=== PATIENT | male | born 1945 | race Caucasian/White ===

== ENCOUNTER 2018-03-22 11:12 | Outpatient (CLI) | payer MEDICARE, BC | END 2018-03-22 23:59 | disposition home or self-care (01) | LOC: WOU 11:12 | PROVIDERS: ATTEND Podiatrist Foot & Ankle Surgery | DX: E11.622 Type 2 diabetes mellitus with other skin ulcer (principal); L97.322 Non-pressure chronic ulcer of left ankle with fat layer exposed; L03.116 Cellulitis of left lower limb; B96.20 Unspecified Escherichia coli [E. coli] as the cause of diseases classified elsewhere; B95.62 Methicillin resistant Staphylococcus aureus infection as the cause of diseases classified elsewhere; B95.1 Streptococcus, group B, as the cause of diseases classified elsewhere; R60.0 Localized edema; I87.2 Venous insufficiency (chronic) (peripheral); Z79.4 Long term (current) use of insulin; Z85.89 Personal history of malignant neoplasm of other organs and systems | CPT/HCPCS: 87070; 87077; 87186; A6402; G0463; Z7610; 87075-TC ==

== ENCOUNTER 2018-03-23 12:37 | Outpatient (CLI) | payer MEDICARE, BC ==
[2018-03-23 17:17] LABS: BASOPHILS % (AUTO) 0.2 % (0.0-2.0); EOSINOPHILS % (AUTO) 1.2 % (0.0-6.0); HEMATOCRIT 46 % (39-51); HEMOGLOBIN 14.6 g/dL (13.5-17.5); LYMPHOCYTES # (AUTO) 1.7 /CMM (0.8-4.8); LYMPHOCYTES % (AUTO) 20.2 % (20.0-44.0); MEAN CORPUSCULAR HGB CONC 32 g/dl (31.0-36.0); MEAN CORPUSCULAR VOLUME 96 fL (80-96); MONOCYTES # (AUTO) 0.4 /CMM (0.1-1.30); MONOCYTES % (AUTO) 5.1 % (2.0-12.0); NEUTROPHILS # (AUTO) 6.2 /CMM (1.8-8.9); NEUTROPHILS % (AUTO) 73.3 % (43.0-81.0); PLATELET COUNT (AUTO) 265 /CMM (150-450); RDW COEFFICIENT OF VARIATION 14.2 (11.5-15.0); WHITE BLOOD COUNT (AUTO) 8.5 K/uL (4.3-11.0)
[2018-03-23 17:30] LABS: ALANINE AMINOTRANSFERASE 22 U/L (12-78); ALBUMIN 3.7 g/dL (3.4-5.0); ALKALINE PHOSPHATASE 57 U/L (46-116); ASPARTATE AMINOTRANSFERASE 19 U/L (15-37); BILIRUBIN,TOTAL 0.6 mg/dL (0.2-1.0); CALCIUM, SERUM 8.6 mg/dL (8.5-10.1); CARBON DIOXIDE 27 mmol/L (21-32); CHLORIDE 106 mmol/L (98-107); CREATININE 1.1 mg/dL (0.6-1.3); GLUCOSE 117 mg/dL (74-106); POTASSIUM 4.6 mmol/L (3.5-5.1); SODIUM SERUM 140 mmol/L (136-145); UREA NITROGEN, BLOOD 24 mg/dL (7-18)
== END 2018-03-23 23:59 | disposition home or self-care (01) ==
LOC: MRI 12:37
PROVIDERS: ATTEND Podiatrist Foot & Ankle Surgery
DX: S96.812A Strain of other specified muscles and tendons at ankle and foot level, left foot, initial encounter (principal); S93.692A Other sprain of left foot, initial encounter; M72.2 Plantar fascial fibromatosis; M62.572 Muscle wasting and atrophy, not elsewhere classified, left ankle and foot; G62.9 Polyneuropathy, unspecified; X58.XXXA Exposure to other specified factors, initial encounter; Y93.89 Activity, other specified; Y92.89 Other specified places as the place of occurrence of the external cause; Y99.8 Other external cause status
CPT/HCPCS: 36415; 73718-TC; 80053-TC; 85025-TC; 85652-TC

== ENCOUNTER 2018-03-29 11:10 | Outpatient (CLI) | payer MEDICARE, BC | END 2018-03-29 23:59 | disposition home or self-care (01) | LOC: WOU 11:10 | PROVIDERS: ATTEND Podiatrist Foot & Ankle Surgery | DX: E11.622 Type 2 diabetes mellitus with other skin ulcer (principal); L97.322 Non-pressure chronic ulcer of left ankle with fat layer exposed; R60.9 Edema, unspecified; I87.2 Venous insufficiency (chronic) (peripheral); Z79.899 Other long term (current) drug therapy | CPT/HCPCS: 11042; A6402; Z7610 ==

== ENCOUNTER 2018-05-24 12:15 | Outpatient (CLI) | payer MEDICARE, BC | END 2018-05-24 23:59 | disposition home or self-care (01) | LOC: WOU 12:15 | PROVIDERS: ATTEND Podiatrist Foot & Ankle Surgery | DX: E11.622 Type 2 diabetes mellitus with other skin ulcer (principal); L97.322 Non-pressure chronic ulcer of left ankle with fat layer exposed; L03.116 Cellulitis of left lower limb; B96.89 Other specified bacterial agents as the cause of diseases classified elsewhere; I87.2 Venous insufficiency (chronic) (peripheral); R60.9 Edema, unspecified; Z79.899 Other long term (current) drug therapy | CPT/HCPCS: 11042; 87070; 87075; 87077; 87186; A6402; Z7610 ==

== ENCOUNTER 2018-06-22 11:39 | Outpatient (CLI) | payer MEDICARE, BC ==
[2018-06-22 12:06] LABS: BASOPHILS % (AUTO) 0.6 % (0.0-2.0); EOSINOPHILS % (AUTO) 3.1 % (0.0-6.0); HEMATOCRIT 41 % (39-51); HEMOGLOBIN 14.1 g/dL (13.5-17.5); LYMPHOCYTES # (AUTO) 2.6 /CMM (0.8-4.8); LYMPHOCYTES % (AUTO) 39.9 % (20.0-44.0); MEAN CORPUSCULAR HGB CONC 34 g/dl (31.0-36.0); MEAN CORPUSCULAR VOLUME 94 fL (80-96); MONOCYTES # (AUTO) 0.7 /CMM (0.1-1.30); MONOCYTES % (AUTO) 10.9 % (2.0-12.0); NEUTROPHILS # (AUTO) 2.9 /CMM (1.8-8.9); NEUTROPHILS % (AUTO) 45.5 % (43.0-81.0); PLATELET COUNT (AUTO) 278 /CMM (150-450); RED BLOOD CELL COUNT(AUTO) 4.38 MIL/uL (4.5-6.0); WHITE BLOOD COUNT (AUTO) 6.5 K/uL (4.3-11.0)
[2018-06-22 12:14] LABS: CALCIUM, SERUM 8.3 mg/dL (8.5-10.1); CARBON DIOXIDE 23 mmol/L (21-32); CHLORIDE 105 mmol/L (98-107); CREATININE 1.2 mg/dL (0.6-1.3); GLUCOSE 116 mg/dL (74-106); POTASSIUM 4.2 mmol/L (3.5-5.1); SODIUM SERUM 138 mmol/L (136-145); UREA NITROGEN, BLOOD 23 mg/dL (7-18)
== END 2018-06-22 23:59 | disposition home or self-care (01) ==
LOC: LAB 11:39
PROVIDERS: ATTEND Podiatrist Foot & Ankle Surgery
DX: Z01.818 Encounter for other preprocedural examination (principal); E11.621 Type 2 diabetes mellitus with foot ulcer
CPT/HCPCS: 36415; 71045-TC; 80048-TC; 85025-TC; 85730-TC

== ENCOUNTER 2018-06-24 12:30 | Outpatient (CLI) | payer MEDICARE, BC | END 2018-06-24 23:59 | disposition home or self-care (01) | LOC: WOU 12:30 | PROVIDERS: ATTEND Podiatrist Foot & Ankle Surgery | DX: E11.622 Type 2 diabetes mellitus with other skin ulcer (principal); L97.322 Non-pressure chronic ulcer of left ankle with fat layer exposed; L90.5 Scar conditions and fibrosis of skin; Z79.899 Other long term (current) drug therapy | CPT/HCPCS: 11042; A6402; Z7610 ==

== ENCOUNTER → 2018-06-28 | Day surgery (SDC) | payer MEDICARE, BC ==
[~2018-06-28] MED LIST: ANESTHESIA TRAY IN PYXIS 1 EA TRAY MC ONE; BUPIVACAINE MPF 0.5% W/EPI INJ 30 ML VIAL ONE; FENTANYL PF 100MCG/2ML AMPUL ONE; HYDROCODONE/APAP 5/325MG 1 EACH TABLET ONE; LIDOCAINE HCL/PF 1% 30 ML SDV ONE; MIDAZOLAM HCL 2 MG/2ML VIAL ONE; MINERAL OIL 10 ML VIAL MC ONE
== END | disposition home or self-care (01) ==
LOC: DS 05:56
PROVIDERS: ATTEND Podiatrist Foot & Ankle Surgery
DX: E11.621 Type 2 diabetes mellitus with foot ulcer (principal); L97.528 Non-pressure chronic ulcer of other part of left foot with other specified severity; I10 Essential (primary) hypertension; G47.33 Obstructive sleep apnea (adult) (pediatric); Z88.8 Allergy status to other drugs, medicaments and biological substances; Z79.899 Other long term (current) drug therapy
CPT/HCPCS: 82962-TC; 87070-TC; 87186-TC; 88305-TC; 88312-TC; A6209; A6402; J0690; J2250; J2704; J3010; J3490

== ENCOUNTER 2018-07-05 11:00 | Outpatient (CLI) | payer MEDICARE, BC | END 2018-07-05 23:59 | disposition home or self-care (01) | LOC: WOU 11:00 | PROVIDERS: ATTEND Podiatrist Foot & Ankle Surgery | DX: Z48.817 Encounter for surgical aftercare following surgery on the skin and subcutaneous tissue (principal); T81.89XD Other complications of procedures, not elsewhere classified, subsequent encounter; Z94.5 Skin transplant status | CPT/HCPCS: A6402; G0463 ==

== ENCOUNTER 2018-07-12 11:00 | Outpatient (CLI) | payer MEDICARE, BC | END 2018-07-12 23:59 | disposition home or self-care (01) | LOC: WOU 11:00 | PROVIDERS: ATTEND Podiatrist Foot & Ankle Surgery | DX: Z48.817 Encounter for surgical aftercare following surgery on the skin and subcutaneous tissue (principal); T81.89XD Other complications of procedures, not elsewhere classified, subsequent encounter; I87.2 Venous insufficiency (chronic) (peripheral); Z94.5 Skin transplant status; M79.672 Pain in left foot; M79.652 Pain in left thigh; R60.9 Edema, unspecified | CPT/HCPCS: 29445; A6402 ×2; Z7610 ==

== ENCOUNTER 2018-07-22 10:45 | Outpatient (CLI) | payer MEDICARE, BC | END 2018-07-22 23:59 | disposition home or self-care (01) | LOC: WOU 10:45 | PROVIDERS: ATTEND Podiatrist Foot & Ankle Surgery | DX: Z48.817 Encounter for surgical aftercare following surgery on the skin and subcutaneous tissue (principal); T86.828 Other complications of skin graft (allograft) (autograft); T81.89XA Other complications of procedures, not elsewhere classified, initial encounter; E11.621 Type 2 diabetes mellitus with foot ulcer; L97.522 Non-pressure chronic ulcer of other part of left foot with fat layer exposed; E11.40 Type 2 diabetes mellitus with diabetic neuropathy, unspecified | CPT/HCPCS: 29581; A6207; A6402 ==

== ENCOUNTER 2018-07-27 09:00 | Outpatient (CLI) | payer MEDICARE, BC | END 2018-07-27 23:59 | disposition home or self-care (01) | LOC: WOU 09:00 | PROVIDERS: ATTEND Specialist | DX: Z01.818 Encounter for other preprocedural examination (principal); T86.821 Skin graft (allograft) (autograft) failure; T81.89XA Other complications of procedures, not elsewhere classified, initial encounter; E11.621 Type 2 diabetes mellitus with foot ulcer; L97.522 Non-pressure chronic ulcer of other part of left foot with fat layer exposed; E11.40 Type 2 diabetes mellitus with diabetic neuropathy, unspecified; Z79.899 Other long term (current) drug therapy | CPT/HCPCS: 29581; A6207; A6402 ==

== ENCOUNTER 2018-08-02 10:50 | Outpatient (CLI) | payer MEDICARE, BC | END 2018-08-02 23:59 | disposition home or self-care (01) | LOC: WOU 10:50 | PROVIDERS: ATTEND Podiatrist Foot & Ankle Surgery | DX: T86.821 Skin graft (allograft) (autograft) failure (principal); L97.522 Non-pressure chronic ulcer of other part of left foot with fat layer exposed; L03.90 Cellulitis, unspecified; R60.9 Edema, unspecified; I87.2 Venous insufficiency (chronic) (peripheral); E11.9 Type 2 diabetes mellitus without complications; Z79.899 Other long term (current) drug therapy | CPT/HCPCS: 15275; 87070; 87075; 87077; 87186; A6402; A6452; Q4195 ==

== ENCOUNTER 2018-08-05 11:19 | Outpatient (CLI) | payer MEDICARE, BC | END 2018-08-05 23:59 | disposition home or self-care (01) | LOC: WOU 11:19 | PROVIDERS: ATTEND Podiatrist Foot & Ankle Surgery | DX: T86.821 Skin graft (allograft) (autograft) failure (principal); L97.522 Non-pressure chronic ulcer of other part of left foot with fat layer exposed; I87.8 Other specified disorders of veins; R60.0 Localized edema | CPT/HCPCS: 11042; A6207; A6402; A6452 ==

== ENCOUNTER 2018-08-09 11:15 | Outpatient (CLI) | payer MEDICARE, BC | END 2018-08-09 23:59 | disposition home or self-care (01) | LOC: WOU 11:15 | PROVIDERS: ATTEND Podiatrist Foot & Ankle Surgery | DX: T86.821 Skin graft (allograft) (autograft) failure (principal); L97.522 Non-pressure chronic ulcer of other part of left foot with fat layer exposed; I87.2 Venous insufficiency (chronic) (peripheral); R60.0 Localized edema; Z79.899 Other long term (current) drug therapy | CPT/HCPCS: 15275; A6402; Q4195 ==

== ENCOUNTER 2018-08-10 09:00 | Outpatient (CLI) | payer MEDICARE, BC | END 2018-08-10 23:59 | disposition home or self-care (01) | LOC: WOU 09:00 | PROVIDERS: ATTEND Specialist | DX: T86.821 Skin graft (allograft) (autograft) failure (principal); E11.621 Type 2 diabetes mellitus with foot ulcer; L97.529 Non-pressure chronic ulcer of other part of left foot with unspecified severity; T70.0XXA Otitic barotrauma, initial encounter; X58.XXXA Exposure to other specified factors, initial encounter; I87.2 Venous insufficiency (chronic) (peripheral) | CPT/HCPCS: G0463 ==

== ENCOUNTER 2018-08-16 11:15 | Outpatient (CLI) | payer MEDICARE, BC | END 2018-08-16 23:59 | disposition home or self-care (01) | LOC: WOU 11:15 | PROVIDERS: ATTEND Podiatrist Foot & Ankle Surgery | DX: I87.2 Venous insufficiency (chronic) (peripheral) (principal); L97.522 Non-pressure chronic ulcer of other part of left foot with fat layer exposed; T86.821 Skin graft (allograft) (autograft) failure | CPT/HCPCS: 15275; A6402 ==

== ENCOUNTER 2018-08-31 13:00 | Outpatient (CLI) | payer MEDICARE, BC ==
[2018-08-31] MEDS ORDERED: DEXAMETHASONE SOD PHOSPHATE 4 MG/ML VIAL IJ ONE (14:00)
[2018-08-31] MEDS ORDERED: LIDOCAINE 1% INJ 50 ML MDV IJ ONE (14:00)
[2018-08-31] MEDS ORDERED: ETHYL CHLORIDE SPRAY 1 EA BOTTLE TP ONE (14:00)
== END 2018-08-31 23:59 | disposition home or self-care (01) ==
LOC: WOU 13:00
PROVIDERS: ATTEND Podiatrist Foot & Ankle Surgery
PROC: 3E0T3BZ Introduction of Anesthetic Agent into Peripheral Nerves and Plexi, Percutaneous Approach (ICD-10-PCS; principal; 2018-08-31)
PROC: 3E0T33Z Introduction of Anti-inflammatory into Peripheral Nerves and Plexi, Percutaneous Approach (ICD-10-PCS; principal; 2018-08-31)
DX: T86.821 Skin graft (allograft) (autograft) failure (principal); E11.621 Type 2 diabetes mellitus with foot ulcer; L97.522 Non-pressure chronic ulcer of other part of left foot with fat layer exposed; I87.2 Venous insufficiency (chronic) (peripheral); G57.82 Other specified mononeuropathies of left lower limb; Z79.4 Long term (current) use of insulin; Z79.899 Other long term (current) drug therapy
CPT/HCPCS: 15271; 64450; A6402; J1100; J3490; Q4196

== ENCOUNTER 2018-09-06 11:20 | Outpatient (CLI) | payer MEDICARE, BC | END 2018-09-06 23:59 | disposition home or self-care (01) | LOC: WOU 11:20 | PROVIDERS: ATTEND Podiatrist Foot & Ankle Surgery | DX: T86.821 Skin graft (allograft) (autograft) failure (principal); E11.621 Type 2 diabetes mellitus with foot ulcer; L97.522 Non-pressure chronic ulcer of other part of left foot with fat layer exposed; E11.42 Type 2 diabetes mellitus with diabetic polyneuropathy; Z79.899 Other long term (current) drug therapy | CPT/HCPCS: 15275; 82962; A6402; Q4196 ==

== ENCOUNTER 2018-09-13 11:40 | Outpatient (CLI) | payer MEDICARE, BC | END 2018-09-13 23:59 | disposition home or self-care (01) | LOC: WOU 11:40 | PROVIDERS: ATTEND Podiatrist Foot & Ankle Surgery | DX: E11.621 Type 2 diabetes mellitus with foot ulcer (principal); L97.522 Non-pressure chronic ulcer of other part of left foot with fat layer exposed; T86.821 Skin graft (allograft) (autograft) failure; Z79.899 Other long term (current) drug therapy | CPT/HCPCS: 11042; A6402 ==

== ENCOUNTER 2018-09-20 11:30 | Outpatient (CLI) | payer MEDICARE, BC | END 2018-09-20 23:59 | disposition home or self-care (01) | LOC: WOU 11:30 | PROVIDERS: ATTEND Podiatrist Foot & Ankle Surgery | DX: E11.621 Type 2 diabetes mellitus with foot ulcer (principal); L97.522 Non-pressure chronic ulcer of other part of left foot with fat layer exposed; T86.821 Skin graft (allograft) (autograft) failure; E11.42 Type 2 diabetes mellitus with diabetic polyneuropathy; Z79.899 Other long term (current) drug therapy | CPT/HCPCS: 11042; A6402; 11043; 17250 ==

== ENCOUNTER 2018-09-28 12:45 | Outpatient (CLI) | payer MEDICARE, BC | END 2018-09-28 23:59 | disposition home or self-care (01) | LOC: WOU 12:45 | PROVIDERS: ATTEND Podiatrist Foot & Ankle Surgery | DX: T86.821 Skin graft (allograft) (autograft) failure (principal); G60.9 Hereditary and idiopathic neuropathy, unspecified; R60.0 Localized edema; E11.621 Type 2 diabetes mellitus with foot ulcer; L97.522 Non-pressure chronic ulcer of other part of left foot with fat layer exposed; Z79.4 Long term (current) use of insulin | CPT/HCPCS: 15275; A6402; Q4195 ==

== ENCOUNTER 2018-10-04 11:15 | Outpatient (CLI) | payer MEDICARE, BC | END 2018-10-04 23:59 | disposition home or self-care (01) | LOC: WOU 11:15 | PROVIDERS: ATTEND Podiatrist Foot & Ankle Surgery | DX: T81.89XA Other complications of procedures, not elsewhere classified, initial encounter (principal); T86.828 Other complications of skin graft (allograft) (autograft); E11.621 Type 2 diabetes mellitus with foot ulcer; L97.522 Non-pressure chronic ulcer of other part of left foot with fat layer exposed; R60.0 Localized edema; G60.9 Hereditary and idiopathic neuropathy, unspecified; Z79.899 Other long term (current) drug therapy; T70.0XXA Otitic barotrauma, initial encounter | CPT/HCPCS: 11042; A6402 ==

== ENCOUNTER 2018-10-05 09:00 | Outpatient (CLI) | payer MEDICARE, BC | END 2018-10-05 23:59 | disposition home or self-care (01) | LOC: WOU 09:00 | PROVIDERS: ATTEND Specialist | DX: T81.89XA Other complications of procedures, not elsewhere classified, initial encounter (principal); T86.828 Other complications of skin graft (allograft) (autograft); E11.621 Type 2 diabetes mellitus with foot ulcer; L97.529 Non-pressure chronic ulcer of other part of left foot with unspecified severity; T70.0XXA Otitic barotrauma, initial encounter | CPT/HCPCS: G0463 ==

== ENCOUNTER 2018-10-11 11:20 | Outpatient (CLI) | payer MEDICARE, BC | END 2018-10-11 23:59 | disposition home or self-care (01) | LOC: WOU 11:20 | PROVIDERS: ATTEND Podiatrist Foot & Ankle Surgery | DX: E11.621 Type 2 diabetes mellitus with foot ulcer (principal); L97.528 Non-pressure chronic ulcer of other part of left foot with other specified severity; T86.821 Skin graft (allograft) (autograft) failure; E11.42 Type 2 diabetes mellitus with diabetic polyneuropathy; R60.0 Localized edema; Z79.899 Other long term (current) drug therapy | CPT/HCPCS: 17250; A6402 ==

== ENCOUNTER 2018-10-18 11:24 | Outpatient (CLI) | payer MEDICARE, BC | END 2018-10-18 23:59 | disposition home or self-care (01) | LOC: WOU 11:24 | PROVIDERS: ATTEND Podiatrist Foot & Ankle Surgery | DX: E11.621 Type 2 diabetes mellitus with foot ulcer (principal); L97.522 Non-pressure chronic ulcer of other part of left foot with fat layer exposed; T86.821 Skin graft (allograft) (autograft) failure; E11.42 Type 2 diabetes mellitus with diabetic polyneuropathy; Z79.899 Other long term (current) drug therapy | CPT/HCPCS: 17250; A6402; 11042 ==

== ENCOUNTER 2018-10-28 11:00 | Outpatient (CLI) | payer MEDICARE, BC | END 2018-10-28 23:59 | disposition home or self-care (01) | LOC: WOU 11:00 | PROVIDERS: ATTEND Podiatrist Foot & Ankle Surgery | DX: T86.821 Skin graft (allograft) (autograft) failure (principal); E11.621 Type 2 diabetes mellitus with foot ulcer; L97.522 Non-pressure chronic ulcer of other part of left foot with fat layer exposed; R60.0 Localized edema; M25.572 Pain in left ankle and joints of left foot; Z79.4 Long term (current) use of insulin | CPT/HCPCS: 17250; A6402 ==

== ENCOUNTER 2018-11-04 11:50 | Outpatient (CLI) | payer MEDICARE, BC | END 2018-11-04 23:59 | disposition home or self-care (01) | LOC: WOU 11:50 | PROVIDERS: ATTEND Podiatrist Foot & Ankle Surgery | DX: E11.621 Type 2 diabetes mellitus with foot ulcer (principal); L97.522 Non-pressure chronic ulcer of other part of left foot with fat layer exposed; T86.821 Skin graft (allograft) (autograft) failure; G61.81 Chronic inflammatory demyelinating polyneuritis | CPT/HCPCS: 17250 ==

== ENCOUNTER 2018-11-11 11:40 | Outpatient (CLI) | payer MEDICARE, BC | END 2018-11-11 23:59 | disposition home or self-care (01) | LOC: WOU 11:40 | PROVIDERS: ATTEND Podiatrist Foot & Ankle Surgery | DX: E11.621 Type 2 diabetes mellitus with foot ulcer (principal); L97.522 Non-pressure chronic ulcer of other part of left foot with fat layer exposed; T86.821 Skin graft (allograft) (autograft) failure; E11.42 Type 2 diabetes mellitus with diabetic polyneuropathy; M54.9 Dorsalgia, unspecified; G61.81 Chronic inflammatory demyelinating polyneuritis; Z79.4 Long term (current) use of insulin | CPT/HCPCS: 17250; A6402 ==

== ENCOUNTER 2018-11-16 13:30 | Outpatient (CLI) | payer MEDICARE, BC | END 2018-11-16 23:59 | disposition home or self-care (01) | LOC: WOU 13:30 | PROVIDERS: ATTEND Podiatrist Foot & Ankle Surgery | DX: T86.821 Skin graft (allograft) (autograft) failure (principal); E11.42 Type 2 diabetes mellitus with diabetic polyneuropathy; M54.30 Sciatica, unspecified side; G61.81 Chronic inflammatory demyelinating polyneuritis; Z79.4 Long term (current) use of insulin; Z79.899 Other long term (current) drug therapy | CPT/HCPCS: A6402; G0463 ==

== ENCOUNTER 2018-11-22 11:05 | Outpatient (CLI) | payer MEDICARE, BC | END 2018-11-22 23:59 | disposition home or self-care (01) | LOC: WOU 11:05 | PROVIDERS: ATTEND Podiatrist Foot & Ankle Surgery | DX: E11.42 Type 2 diabetes mellitus with diabetic polyneuropathy (principal); Z79.899 Other long term (current) drug therapy; G58.8 Other specified mononeuropathies; R60.0 Localized edema | CPT/HCPCS: A6402; G0463 ==

== ENCOUNTER 2018-12-06 09:55 | Outpatient (CLI) | payer MEDICARE, BC | END 2018-12-06 23:59 | disposition home or self-care (01) | LOC: WOU 09:55 | PROVIDERS: ATTEND Podiatrist Foot & Ankle Surgery | DX: E11.621 Type 2 diabetes mellitus with foot ulcer (principal); L97.522 Non-pressure chronic ulcer of other part of left foot with fat layer exposed; E11.42 Type 2 diabetes mellitus with diabetic polyneuropathy; Z79.899 Other long term (current) drug therapy; G58.8 Other specified mononeuropathies; L03.116 Cellulitis of left lower limb; R60.0 Localized edema | CPT/HCPCS: A6402; G0463 ==

== ENCOUNTER 2018-12-09 12:42 | Outpatient (CLI) | payer MEDICARE, BC ==
[2018-12-09] MEDS ORDERED: GADODIAMIDE 5 MMOL/10 ML VIAL IJ ONE (12:43)
[2018-12-09] MEDS ORDERED: GADODIAMIDE 2.5 MMOL/5 ML VIAL IJ ONE (12:43)
[2018-12-09 15:06] LABS: BASOPHILS # (AUTO) 0.1 /CMM (0.0-0.2); BASOPHILS % (AUTO) 1.3 % (0.0-2.0); EOSINOPHILS % (AUTO) 2.2 % (0.0-6.0); HEMATOCRIT 42 % (39-51); HEMOGLOBIN 14.4 g/dL (13.5-17.5); LYMPHOCYTES % (AUTO) 35.9 % (20.0-44.0); MEAN CORPUSCULAR HGB CONC 34 g/dl (31.0-36.0); MEAN CORPUSCULAR VOLUME 97 fL (80-96); MONOCYTES # (AUTO) 0.7 /CMM (0.1-1.30); MONOCYTES % (AUTO) 8.4 % (2.0-12.0); NEUTROPHILS # (AUTO) 4.3 /CMM (1.8-8.9); NEUTROPHILS % (AUTO) 52.2 % (43.0-81.0); PLATELET COUNT (AUTO) 261 /CMM (150-450); RED BLOOD CELL COUNT(AUTO) 4.38 MIL/uL (4.5-6.0); WHITE BLOOD COUNT (AUTO) 8.2 K/uL (4.3-11.0)
== END 2018-12-09 23:59 | disposition home or self-care (01) ==
LOC: MRI 12:42
PROVIDERS: ATTEND Podiatrist Foot & Ankle Surgery
DX: S86.312A Strain of muscle(s) and tendon(s) of peroneal muscle group at lower leg level, left leg, initial encounter (principal); M20.12 Hallux valgus (acquired), left foot; M21.612 Bunion of left foot; M25.775 Osteophyte, left foot; M25.475 Effusion, left foot; M20.42 Other hammer toe(s) (acquired), left foot; L03.116 Cellulitis of left lower limb; X58.XXXA Exposure to other specified factors, initial encounter; Y93.89 Activity, other specified; Y92.89 Other specified places as the place of occurrence of the external cause; Y99.8 Other external cause status
CPT/HCPCS: 36415; 73718; 73721; 85025; 85652; 86140; A9579 ×2

== ENCOUNTER 2018-12-13 11:00 | Outpatient (CLI) | payer MEDICARE, BC | END 2018-12-13 23:59 | disposition home or self-care (01) | LOC: WOU 11:00 | PROVIDERS: ATTEND Podiatrist Foot & Ankle Surgery | DX: E11.621 Type 2 diabetes mellitus with foot ulcer (principal); L97.522 Non-pressure chronic ulcer of other part of left foot with fat layer exposed; G58.8 Other specified mononeuropathies; M65.872 Other synovitis and tenosynovitis, left ankle and foot; M25.572 Pain in left ankle and joints of left foot; R60.0 Localized edema; Z79.899 Other long term (current) drug therapy | CPT/HCPCS: 17250; 20550; A6402 ==

== ENCOUNTER 2018-12-20 11:10 | Outpatient (CLI) | payer MEDICARE, BC ==
[2018-12-20] MEDS ORDERED: ETHYL CHLORIDE SPRAY 1 EA BOTTLE TP ONE (12:30)
[2018-12-20] MEDS ORDERED: DEXAMETHASONE SOD PHOSPHATE 4 MG/ML VIAL MC ONE (12:30)
== END 2018-12-20 23:59 | disposition home or self-care (01) ==
LOC: WOU 11:10
PROVIDERS: ATTEND Podiatrist Foot & Ankle Surgery
DX: L97.522 Non-pressure chronic ulcer of other part of left foot with fat layer exposed (principal); T86.821 Skin graft (allograft) (autograft) failure; M25.572 Pain in left ankle and joints of left foot; M65.872 Other synovitis and tenosynovitis, left ankle and foot; G58.8 Other specified mononeuropathies; R60.0 Localized edema; Z79.899 Other long term (current) drug therapy
CPT/HCPCS: 17250; 20550; A6402; J1100; J3490

== ENCOUNTER 2019-01-06 10:20 | Outpatient (CLI) | payer MEDICARE, BC | END 2019-01-06 23:59 | disposition home or self-care (01) | LOC: WOU 10:20 | PROVIDERS: ATTEND Podiatrist Foot & Ankle Surgery | DX: T86.821 Skin graft (allograft) (autograft) failure (principal); E11.42 Type 2 diabetes mellitus with diabetic polyneuropathy; R60.0 Localized edema; M79.671 Pain in right foot; G61.81 Chronic inflammatory demyelinating polyneuritis; Z79.4 Long term (current) use of insulin | CPT/HCPCS: 17250 ==

== ENCOUNTER 2019-01-13 08:25 | Outpatient (CLI) | payer MEDICARE, BC | END 2019-01-13 23:59 | disposition home or self-care (01) | LOC: WOU 08:25 | PROVIDERS: ATTEND Podiatrist Foot & Ankle Surgery | DX: E11.42 Type 2 diabetes mellitus with diabetic polyneuropathy (principal); M79.672 Pain in left foot; R60.0 Localized edema; R11.0 Nausea; T43.215A Adverse effect of selective serotonin and norepinephrine reuptake inhibitors, initial encounter; Y92.89 Other specified places as the place of occurrence of the external cause | CPT/HCPCS: G0463 ==

== ENCOUNTER 2019-02-03 08:30 | Outpatient (CLI) | payer MEDICARE, BC | END 2019-02-03 23:59 | disposition home or self-care (01) | LOC: WOU 08:30 | PROVIDERS: ATTEND Podiatrist Foot & Ankle Surgery | DX: E11.42 Type 2 diabetes mellitus with diabetic polyneuropathy (principal); G61.81 Chronic inflammatory demyelinating polyneuritis; R11.0 Nausea; T43.21 Poisoning by, adverse effect of and underdosing of selective serotonin and norepinephrine reuptake inhibitors; R60.0 Localized edema; Z86.31 Personal history of diabetic foot ulcer | CPT/HCPCS: G0463 ==

== ENCOUNTER 2019-02-24 08:35 | Outpatient (CLI) | payer MEDICARE, BC | END 2019-02-24 23:59 | disposition home or self-care (01) | LOC: WOU 08:35 | PROVIDERS: ATTEND Podiatrist Foot & Ankle Surgery | DX: E11.42 Type 2 diabetes mellitus with diabetic polyneuropathy (principal); L90.5 Scar conditions and fibrosis of skin; M25.472 Effusion, left ankle; I87.8 Other specified disorders of veins; Z86.31 Personal history of diabetic foot ulcer | CPT/HCPCS: G0463 ==

== ENCOUNTER 2019-04-05 13:50 | Outpatient (CLI) | payer MEDICARE, BC | END 2019-04-05 23:59 | disposition home health service (06) | LOC: WOU 13:50 | PROVIDERS: ATTEND Podiatrist Foot & Ankle Surgery | DX: Z09 Encounter for follow-up examination after completed treatment for conditions other than malignant neoplasm (principal); E11.40 Type 2 diabetes mellitus with diabetic neuropathy, unspecified; Z86.31 Personal history of diabetic foot ulcer; R11.0 Nausea; T43.215A Adverse effect of selective serotonin and norepinephrine reuptake inhibitors, initial encounter; Y92.018 Other place in single-family (private) house as the place of occurrence of the external cause; G61.81 Chronic inflammatory demyelinating polyneuritis | CPT/HCPCS: G0463 ==